=== PATIENT | female | born 1935 | race Caucasian/White ===

== ENCOUNTER 2019-05-15 09:45 | Emergency (ER) | payer OTHER ==
[~2019-05-15] VITALS: Ht 152.4 cm; Wt 80.3 kg
[2019-05-15 10:07] LABS: ABSOLUTE NEUTROPHILS 2.7 thou/uL (1.4-8.2); BASOPHILS 0.6 % (0.0-2.0); EOSINOPHILS 3.5 % (0.0-3.0); HEMATOCRIT 35.7 % (37.0-47.0); HEMOGLOBIN 11.8 gm/dL (12.0-15.0); LYMPHOCYTES 27.1 % (24.0-44.0); MCH 28.2 pg (26.0-34.0); MCHC 33.2 g/dL (28.0-37.0); MCV 85.1 fL (80.0-100.0); MONOCYTES 7.3 % (1.0-8.0); PLATELET COUNT 150 thou/uL (150-400); POLYS 61.5 % (36.0-66.0); RDW 14.2 % (10.5-14.5); WBC 4.4 thou/uL (4.0-11.0)
[2019-05-15 10:08] VITALS: BP 135/77
[2019-05-15 10:11] LABS: ANION GAP 7 mmol/L (7-16); BUN 34 mg/dL (7-18); CALCIUM 8.7 mg/dL (8.5-10.1); CHLORIDE 105 mmol/L (98-107); CO2 29 mmol/L (21-32); CREATININE 1.6 mg/dL (0.6-1.0); GLUCOSE 90 mg/dL (74-106); POTASSIUM 3.9 mmol/L (3.5-5.1); SODIUM 141 mmol/L (136-145)
[2019-05-15] MEDS ORDERED: ACETAMINOPHEN-1 EAC1 PO (10:15)
[2019-05-15] MEDS ORDERED: ASPIR 8181 MG PO (10:15)
[2019-05-15] MEDS ORDERED: LIORESAL 10 MG10 MG PO (10:16)
[2019-05-15] MEDS ORDERED: LIPITOR40 MG PO (10:16)
[2019-05-15] MEDS ORDERED: BENAZEPRIL HCL20 MG PO (10:16)
[2019-05-15] MEDS ORDERED: COCONUT OIL1000 MG PO (10:17)
[2019-05-15] MEDS ORDERED: COLACE100 MG PO (10:18)
[2019-05-15] MEDS ORDERED: DICLOFENAC SODI25 MG PO (10:18)
[2019-05-15] MEDS ORDERED: PEPCID20 MG PO (10:18)
[2019-05-15 10:19] LABS: APTT 26.9 Seconds (24.5-32.8); PROTIME 10.1 Seconds (9.3-11.4)
[2019-05-15] MEDS ORDERED: IRON325 PO (10:19)
[2019-05-15 10:20] LABS: URINE BILIRUBIN NEGATIVE (Negative); URINE BLOOD NEGATIVE (Negative); URINE CLARITY CLEAR; URINE COLOR YELLOW; URINE GLUCOSE-RANDOM* NEGATIVE (Negative); URINE KETONES NEGATIVE (Negative); URINE NITRITE-REFLEX NEGATIVE (Negative); URINE PROTEIN (DIPSTICK) NEGATIVE (Negative); URINE UROBILINOGEN 0.2 E.U./dl (0.2-1.0)
[2019-05-15 10:21] LABS: ALBUMIN 3.3 g/dL (3.4-5.0); MAGNESIUM 2.4 mg/dL (1.8-2.4); SGOT 23 U/L (15-37); SGPT 21 U/L (30-65); TOTAL BILIRUBIN 0.4 mg/dL (<0.1-1.0); TOTAL PROTEIN 7.1 g/dL (6.4-8.2); TROPONIN-I <0.06 ng/mL (<0.06)
[2019-05-15 10:22] LABS: URINE LEUKOCYTES-REFLEX 1+ (Negative)
[2019-05-15] MEDS ORDERED: NEURONTIN600 MG PO (10:23)
[2019-05-15] MEDS ORDERED: LASIX 20 MG TAB20 MG PO (10:23)
[2019-05-15] MEDS ORDERED: OSPHENA60 MG PO (10:24)
[2019-05-15] MEDS ORDERED: PROTONIX 20 MG20 M1 PO (10:24)
[2019-05-15] MEDS ORDERED: SYNTHROID50 MCG PO (10:24)
[2019-05-15] MEDS ORDERED: OXYBUTYNIN 5 MG5 M2 PO (10:24)
[2019-05-15] MEDS ORDERED: UNICOMPLEX M TA1 TA1 PO (10:24)
[2019-05-15] MEDS ORDERED: ANTIVERT25 MG PO (10:25)
[2019-05-15] MEDS ORDERED: ROPINIROLE HCL3 MG PO (10:25)
[2019-05-15] MEDS ORDERED: MIRALAX17 GM PO (10:25)
[2019-05-15 10:28] LABS: SQUAMOUS >10 Many /LPF (0-3)
[2019-05-15 10:29] LABS: AMP/METHAMP Negative (Negative); BACTERIA-REFLEX 1-9 Few /HPF (None Seen); BARBITURATES Negative (Negative); BENZODIAZEPINES Negative (Negative); CASTS None Seen /LPF (None Seen); COCAINE Negative (Negative); CRYSTALS None Seen /LPF (None Seen); METHADONE Negative (Negative); OPIATES Negative (Negative); PCP Negative (Negative); URINE RBC 0-2 Rare /HPF (0-2); URINE WBC-REFLEX 6-15 Few /HPF (0-5)
[2019-05-15] MEDS ORDERED: KEFLEX500 M1 PO (11:01)
--- NOTE | 2019-05-16 14:18 | EKG ---
[place] [address] [place] [address] ELECTROCARDIOGRAM REPORT Name: MIGUELINA RAMIREZ Room [facility]: [id number] ������������������ Admission: 05/15/19 ������������������ Attend Phys: Discharge: 05/15/19 ������������������ Date of : 39 Report #: [id number] ����������������������������������������������������������������� [id number] THIS REPORT FOR: //name// [facility] ED Test Date: 2019-05-15 Test Time: 09:51:45 Pat Name: MIGUELINA RAMIREZ Department: Room: Gender: F [employer]: [facility] : 1935 Requested By: Ted Pierre Order Number: [id number] MD: Chris Woodall Measurements Intervals [place] Rate: 67 P: 36 ND: 188 QRS: -34 QRSD: 113 T: 38 QT: 414 QTc: 437 Interpretive Statements Sinus rhythm Left anterior fascicular block Abnormal R-wave progression, late transition No previous ECG available for comparison Electronically Signed On 05-16-2019 14:17:49 CDT by Chris Woodall [email or web address] ��������������������������������������������� <ELECTRONICALLY SIGNED> ���������������������������������������� By: Chris Woodall MD, [facility] ��������������������������������������������� 05/16/19 1417 0 0 Chris Woodall MD, [facility] /EPI
== END 2019-05-15 11:46 | disposition home or self-care (01) ==
LOC: ER 09:45
PROVIDERS: Emergency Medicine
DX: N39.0 Urinary tract infection, site not specified (principal); R53.1 Weakness; I12.9 Hypertensive chronic kidney disease with stage 1 through stage 4 chronic kidney disease, or unspecified chronic kidney disease; N18.9 Chronic kidney disease, unspecified; E03.9 Hypothyroidism, unspecified; G62.9 Polyneuropathy, unspecified; Z86.73 Personal history of transient ischemic attack (TIA), and cerebral infarction without residual deficits; Z88.5 Allergy status to narcotic agent